=== PATIENT | male | born 1945 | race Caucasian/White ===

== ENCOUNTER → 2017-09-11 14:01 | Outpatient (CLI) | payer MEDICARE, OTHER, SELFPAY | PROVIDERS: Family Provider Family Medicine; PCP Family Medicine; Visit Provider Family Medicine | DX: N30.00 Acute cystitis without hematuria (principal); R32 Unspecified urinary incontinence; Z85.46 Personal history of malignant neoplasm of prostate | CPT/HCPCS: 87086; 87088; 87186 ==

== ENCOUNTER → 2017-12-24 11:08 | Outpatient (CLI) | payer MEDICARE, OTHER, SELFPAY ==
[2017-12-24 15:48] LABS: Anion Gap 8 (5-15); BUN 18 mg/dL (7-18); BUN/Creat Ratio 19.5 RATIO (10-20); Calcium,Total 8.6 mg/dL (8.5-10.1); Chloride 108 mmol/L (98-107); Creatinine, Serum 0.92 mg/dL (0.70-1.30); EST Glomerular Filtration Rate 86 mL/min (>60); Est Glom Filt Rate - Afr Amer 104 mL/min (>60); Glucose 101 mg/dL (74-106); PSA,Total- Diagnostic < 0.01 ng/mL (0.0-4.0); Sodium Level 143 mmol/L (136-145)
== END ==
PROVIDERS: Family Provider Family Medicine; PCP Family Medicine; Visit Provider Family Medicine
DX: I10 Essential (primary) hypertension (principal); I47.1 Supraventricular tachycardia; R30.0 Dysuria; Z85.46 Personal history of malignant neoplasm of prostate
CPT/HCPCS: 36415; 80048; 84153; 87086; 87088; 87186

== ENCOUNTER → 2018-02-11 10:25 | Outpatient (CLI) | payer MEDICARE, OTHER, SELFPAY ==
[2017-03-09 20:05] VITALS: BMI 25.7
--- NOTE | 2018-02-11 10:28 | RAD_ITS ---
STUDY: X-RAY - RIGHT KNEE REASON FOR EXAM: Chronic pain. TECHNIQUE: 4 view(s) of the knee. COMPARISON: None. FINDINGS: Normal visualized distal femur. Normal visualized proximal tibia and fibula. Normal proximal tibiofibular articulation. There is mild joint space narrowing of the medial femorotibial compartment. Normal lateral femorotibial compartment. Normal patellofemoral articulation. There is vascular calcification. RAD/Knee 4 or More Views IMPRESSION: Mild arthrosis of the medial femorotibial compartment. Electronically Signed: Haroon Dior MD at 16:02 EST Tel , Service support ,
== END ==
PROVIDERS: Family Provider Family Medicine; PCP Family Medicine; Referring Provider Orthopaedic Surgery; Visit Provider Orthopaedic Surgery
DX: M25.561 Pain in right knee (principal)
CPT/HCPCS: 73564

== ENCOUNTER → 2018-04-13 10:48 | Outpatient (CLI) | payer MEDICARE, OTHER, SELFPAY ==
[2018-04-13 12:02] LABS: Absolute Lymphocyte Count 0.82 X10^3/ul (0.83-4.51); Basophil# 0.03 X10^3/uL; Basophil% 0.3 % (0-1); Eosinophil# 0.06 X10^3/uL; Eosinophils% 0.6 % (0-5); Hematocrit 46.9 % (40-54); Hemoglobin 15.7 g/dl (13.0-16.5); Lymphocyte # 0.82 X10^3/ul (4.0); Lymphocyte % 8.1 % (19-41); Mean Corp Hgb Conc 33.5 g/gl (32-36); Mean Corpuscular Hgb 30.5 pg (27.0-32.0); Mean Corpuscular Volume 91.2 fL (80-94); Mean Platelet Vol. 9.5 fl (6.2-12.0); Monocyte# 1.17 X10^3/uL; Monocyte% 11.6 % (0-10); Neutrophil # 8.02 X10^3/uL (2.7-7.7); Neutrophil % 79.2 % (47-70); Platelet Count 205 K/mm3 (150-450); RBC Distribution Width CV 13.8 % (11.6-14.6); RBC Distribution Width SD 45.3 fl (35.1-43.9); Red Blood Count 5.14 M/mm3 (4.6-6.2); White Blood Count 10.1 K/mm3 (4.4-11.0)
[2018-04-13 12:03] LABS: POSITIVE COUNT NO; POSITIVE DIFFERENTIAL NO; POSITIVE MORPHOLOGY NO
[2018-04-16 12:09] LABS: Alternaria tenuis <0.10 kU/L (Class 0); Ash, White <0.10 kU/L (Class 0); Aspergillus fumigatus <0.10 kU/L (Class 0); Bermuda Grass <0.10 kU/L (Class 0); Birch <0.10 kU/L (Class 0); Black Walnut <0.10 kU/L (Class 0); Cat Hair / Dander,Stand <0.10 kU/L (Class 0); Cedar, Mountain <0.10 kU/L (Class 0); Cladosporium herbarum <0.10 kU/L (Class 0); Cockroach, American <0.10 kU/L (Class 0); Cottonwood <0.10 kU/L (Class 0); D farinae Mite <0.10 kU/L (Class 0); D pteronyssinus <0.10 kU/L (Class 0); Dog Epithelia <0.10 kU/L (Class 0); Elm, American White <0.10 kU/L (Class 0); Immunoglobulin E 26 IU/mL (0-100); Maple/Box Elder <0.10 kU/L (Class 0); Mulberry, White <0.10 kU/L (Class 0); Oak, White <0.10 kU/L (Class 0); Pecan <0.10 kU/L (Class 0); Penicillium Notatum <0.10 kU/L (Class 0); Pigweed, Rough <0.10 kU/L (Class 0); Ragweed, Short/Common <0.10 kU/L (Class 0); Russian Thistle <0.10 kU/L (Class 0); Sheep Sorrel <0.10 kU/L (Class 0); Sycamore, American <0.10 kU/L (Class 0); Timothy Grass <0.10 kU/L (Class 0)
[2018-04-16 16:26] LABS: Mouse Urine <0.10 kU/L (Class 0)
== END ==
PROVIDERS: Family Provider Family Medicine; PCP Family Medicine; Visit Provider Family Medicine
DX: J01.90 Acute sinusitis, unspecified (principal); J30.9 Allergic rhinitis, unspecified; Z85.46 Personal history of malignant neoplasm of prostate
CPT/HCPCS: 36415; 82785; 85025; 86003; 87070; 87077; 87186; 87205

== ENCOUNTER → 2019-02-09 08:50 | Outpatient (CLI) | payer MEDICARE, OTHER, SELFPAY ==
[2017-03-09 20:05] VITALS: BMI 25.7
[2019-02-09 13:13] LABS: PSA,Total- Diagnostic < 0.01 ng/mL (0.0-4.0)
== END ==
PROVIDERS: Family Provider Family Medicine; PCP Family Medicine; Visit Provider Family Medicine
DX: Z85.46 Personal history of malignant neoplasm of prostate (principal)
CPT/HCPCS: 36415; 84153

== ENCOUNTER 2019-02-28 21:53 | Observation (INO) | payer MEDICARE, OTHER, SELFPAY ==
[2019-02-28] VITALS (8 sets, daily range): BP systolic 145–169; BP diastolic 65–92; PULSE 67–87; RESP 16–20; TEMP 36.4–36.6; O2SAT 95–100; BMI 26.6; BMI 25.8; BMI 25.9
--- NOTE | 2019-02-28 22:15 | EKG12_ITS ---
Test Reason : SOB Blood Pressure : / mmHG Vent. Rate : 073 BPM Atrial Rate : 073 BPM P-R Int : 176 ms QRS Dur : 094 ms QT Int : 414 ms P-R-T Axes : 026 035 034 degrees QTc Int : 456 ms Sinus rhythm with Premature supraventricular complexes and with frequent Premature ventricular comple xes Otherwise normal ECG Confirmed by RIGO PACE, CELINA ([id number]), news assignment editor ESTRELLA GEE ([id number] on 03/03/2019 9:32:05 AM Referred By: BUBBA Confirmed By:CELINA SIERRA MD
--- NOTE | 2019-02-28 22:20 | RAD_ITS ---
STUDY: X-RAY CHEST REASON FOR EXAM: Male, 73 years old. shortness of breath, chest tightness TECHNIQUE: Single AP portable view of the chest. COMPARISON: July 10, 2016 FINDINGS: Possible mild interstitial edema of the bilateral lower lobes versus some respiratory motion artifact. No consolidation or pleural effusion is present. There is no demonstrated pleural abnormality. Normal size heart. The remaining structures are stable. RAD/Chest 1 View (Portable) IMPRESSION: 1. Possible mild interstitial edema of the bilateral lower lobes versus some respiratory motion artifact. No consolidation or pleural effusion is present Electronically Signed: Anil Wilson MD at 22:41 EST , Service support ,
[2019-02-28 22:25] LABS: Absolute Lymphocyte Count 2.72 X10^3/uL (0.83-4.51); Absolute Neutrophil Count 4.4 X10^3/uL (2.0-7.7); Basophil# 0.07 X10^3/uL; Basophil% 0.8 % (0-1); Eosinophil# 0.23 X10^3/uL; Eosinophils% 2.7 % (0-5); Hemoglobin 14.8 g/dL (13.0-16.5); Lymphocyte # 2.72 X10^3/ul (4.0); Lymphocyte % 32.2 % (19-41); Mean Corp Hgb Conc 34.4 g/dL (32-36); Mean Corpuscular Hgb 30.9 pg (27.0-32.0); Mean Corpuscular Volume 89.8 fL (80-94); Mean Platelet Vol. 9.8 fl (6.2-12.0); Monocyte# 0.98 X10^3/uL; Monocyte% 11.6 % (0-10); NRBC Flagged by Analyzer 0 % (0-5); Neutrophil # 4.43 X10^3/uL (2.7-7.7); Neutrophil % 52.5 % (47-70); Platelet Count 241 K/mm3 (150-450); RBC Distribution Width CV 13.2 % (11.6-14.6); RBC Distribution Width SD 43.9 fl (35.1-43.9); Red Blood Count 4.79 M/mm3 (4.6-6.2); White Blood Count 8.5 K/mm3 (4.4-11.0)
[2019-02-28 22:37] LABS: D-Dimer Quantitative (DVT/PE) 0.55 FEU/ug/m (0.27-0.49)
--- NOTE | 2019-02-28 22:38 | ED.RN ---
DOROTEO FROM LAB CALLED WITH D-DIMER 0.55.
[2019-02-28 22:42] LABS: Anion Gap 7 (5-15); BUN 22 mg/dL (7-18); Calcium,Total 8.8 mg/dL (8.5-10.1); Chloride 109 mmol/L (98-107); Creatinine, Serum 1.05 mg/dL (0.70-1.30); EST Glomerular Filtration Rate 74 mL/min (>60); Est Glom Filt Rate - Afr Amer 89 mL/min (>60); Estimated Creatinine Clearance 72.85 ml/min; Glucose 135 mg/dL (74-106); Potassium 3.8 mmol/L (3.5-5.1); Sodium Level 141 mmol/L (136-145)
[2019-02-28] MEDS: Aspirin 81 MG TAB.CHEW 324 MG PO (22:48)
[2019-02-28] MEDS: 0.9% Normal Saline 1,000 ML 150 ML IV (22:48)
[2019-02-28] MEDS: Nitroglycerin SL (ED/IMG/CATH) 0.4 MG TABLET SUBLINGUAL ×3 (22:50→23:15)
--- NOTE | 2019-02-28 22:55 | ED.VISSUMM ---
- ER Visit Summary Date of Service: 02/28/19 Chief Complaint: [Shortness of breath] History of Present Illness: The patient is a 73 M [presents the emergency department complaint shortness of breath and chest discomfort that started suddenly several hours ago. Patient is never had discomfort like this before. He describes some discomfort across the shoulder blades 2. Denies any nausea or vomiting. He denies diaphoresis. Patient did have travel to [place] 2 or 3 weeks ago and was about a 15-hour drive. Patient has history of hypertension. He has no heart disease history. He has had some cold symptoms for the last week.] Physical Examination: [HEENT-PERRLA, EOMI. Cranial nerves II through XII grossly intact. TMs clear. Mucous membranes moist. No adenopathy. Cardiovascular-regular rate and rhythm without murmur or ectopy Lungs-clear to auscultation, chest wall stable without crepitus or subcu emphysema Abdomen-normoactive bowel sounds, soft, nontender, no rebound or rigidity, no peritoneal signs. Extremities-intact ?4, normal range of motion, normal pulses, atraumatic] Test Results: [EKG obtained arrival shows sinus rhythm with a ventricular rate of 73 bpm with occasional PVCs. No acute ST segment changes noted. CBC with differential was normal. Chemistries unremarkable. Troponin was less than 0.015. D-dimer was 0.55. The d-dimer is normal when corrected for age.] Emergency Department Course and Treatment: [Patient received aspirin on arrival emergency department. Patient will receive sublingual nitroglycerin.] Treatment Plan: [Admit] Disposition: [Admit] Impression: [Chest pain-rule out acute coronary syndrome] This note was generated with [employer] dictation software. It may contain incorrect words, spelling, and punctuation that were not noted in review of the chart prior to signing ED Disposition - Plan for ED Patient: Referrals: Evert Hsu DO [Primary Care Provider] -
--- NOTE | 2019-02-28 23:17 | PCM.HP.STD ---
Problem List (1) Chest pain Status: Acute (2) Hypertension Status: Chronic (3) Chronic back pain Status: Chronic (4) Hiatal hernia Status: Chronic History of Present Illness Date of Admission: 02/28/19 Chief Complaint: Chest pain, shortness of breath. The patient is a 73 year old M with past medical history as mentioned above presented to the emergency room because of shortness of breath and chest pain. Patient stated that around 3 hours ago after he had showered and went to sit on his couch, started feeling chest pain described as chest tightness across anterior chest, associated with shortness of breath, was not real pain but it was chest tightness, not radiating but involving the back of his chest as well and without aggravating or relieving factors. He denied dizziness, lightheadedness or diaphoresis. Denied nausea or vomiting. He received aspirin and sublingual nitro in the ED and he mentioned his tightness did not improve. In the emergency department, his blood pressure was slightly elevated, other vital signs were stable. Routine blood work was unremarkable. EKG revealed normal sinus rhythm with frequent PVCs, no acute segment changes. Troponin was negative. Chest x-ray revealed minimal bilateral basilar haziness which could be artifact or mild pulmonary vascular congestion. There was no infiltrate or consolidation. D-dimer was 0.55. He is being admitted for atypical chest pain for evaluation. Past Medical History Past Medical History (Chronic Problems): Chronic Problems Hypertension (Chronic) Chronic back pain (Chronic) Hiatal hernia (Chronic) Allergies No Known Allergies Allergy (Verified 02/11/18 10:16) Home Medications: Ambulatory Orders Medication Instructions Recorded Omeprazole [Prilosec] 20 mg PO DAILY 12/19/15 Diltiazem CD [Cardizem CD] 180 mg PO DAILY 04/08/16 Multivitamin [Daily Multiple 1 each PO DAILY 06/16/16 Vitamin] Aspirin [Aspirin EC] 81 mg PO DAILY 08/29/16 Surgical History: Surgical History (Last Updated 02/11/18 @ 10:17 by Sidra Kat) H/O left knee surgery Z98.890 Surgical History: total hip arthroplasty, TURP, - - Back surgeries ?2, rotator cuff surgery of both shoulders. Psychiatric History: No pertinent psych hx Lives: Spouse/ Significant Other Smoking Status: Never smoker Alcohol: None Drugs: None - *Family History Maternal History Items: Heart Disease, Stroke Paternal History Items: Heart Disease, Stroke Review of Systems Constitutional: Denies: Anorexia, Chills, Fever, Malaise Eyes: Denies: Blurred vision, Double vision, Drainage, Redness HEENT: Denies: Difficulty Hearing, Ear Pain, Eye Pain, Nasal Congestion, Sore Throat Cardiovascular: Reports: Chest Tightness. Denies: Edema, Heaviness, Light Headedness, Orthopnea, Palpitations, Paroxysmal Noc. Dyspnea, Syncope Respiratory: Reports: Shortness of Breath. Denies: Cough, Hemoptysis, Pleuritic Pain, Sputum production, Wheezing Gastrointestinal: Denies: Abdominal Pain, Constipation, Diarrhea, Nausea, Vomiting Genitourinary: Denies: Dysuria, Frequency, Hematuria Musculoskeletal: Denies: Arm Pain, Back Pain, Foot Pain Skin: Denies: Dryness, Rash Neurological: Denies: Balance problems, Blurred vision, Double vision, Change in Speech, Slurred speech, Confusion, Headaches, Incoordination Psychiatric: Denies: Anxiety, Depression Endocrine: Denies: Change in Body Habitus, Polydipsia, Polyuria VTE Information - Inpt Only VTE Present on Admission: No VTE Mechan Device Prophylaxis: None VTE Pharm Prophylaxis ordered?: Yes Patient Problems: Active and Suspected Problems Chest pain (Acute) - Physical Exam Vitals/I&O's: Vital Signs Temp Pulse Resp BP Pulse Ox 97.8 F 80 18 145/77 H 95 02/28/19 21:53 02/28/19 23:15 02/28/19 22:58 02/28/19 23:15 02/28/19 22:58 Oxygen Delivery Method Room Air Weight: 207 lb Body Mass Index (BMI) 26.6 Finger Stick Blood Glucose 162 General: Alert, Oriented x3, Cooperative, No apparent distress HEENT: Atraumatic, PERRLA, EOMI, Normocephalic Oral: Moist Mucosa, No Gingival or Mucosal Lesions/ Ulcerations Neck: Supple, No JVD, Negative Carotid Bruits, Trachea Midline, Thyroid Normal Size and Texture Lungs: Clear to auscultation, Normal air movement, No rhonchi, No wheeze, No rales, Diminished Cardiovascular: Regular rate, Regular Rhythm, Normal S1, Normal S2, PMI Normal, - - Ectopics. Abdomen: Bowel Sounds Present, Soft, Non Tender, Non-Distended, No Hepato-splenomegaly Extremities: No clubbing, No cyanosis, No edema Skin: No rashes, No breakdown Lymphatic: No Cervical, Supraclavicular, or Inguinal Adenopathy Neurological: Cranial nerves II-XII grossly intact, Motor Exam 5/5 strength throughout Psych/Mental Status: Normal Affect, Appropriate, Alert and oriented to time, place, person, mood and affect Laboratory Results 02/28/19 22:05: WBC 8.5, RBC 4.79, Hgb 14.8, Hct 43.0, MCV 89.8, MCH 30.9, MCHC 34.4, RDW Std Deviation 43.9, RDW Coeff of Violeta 13.2, Plt Count 241, MPV 9.8, Immature Gran % (Auto) 0.200, Neut % (Auto) 52.5, Lymph % (Auto) 32.2, [place] % (Auto) 11.6 H, Eos % (Auto) 2.7, Baso % (Auto) 0.8, Absolute Neuts (auto) 4.4, Absolute Lymphs (auto) 2.72, Nucleated RBC % 0 02/28/19 22:05: D-Dimer Quant (PE/DVT) 0.55 H* 02/28/19 22:05: Sodium 141, Potassium 3.8, Chloride 109 H, Carbon Dioxide 25.0, Anion Gap 7, BUN 22 H, Creatinine 1.05, Estim Creat Clear Calc 72.85, Est GFR (MDRD) Af Amer 89, Est GFR (MDRD) Non-Af 74, BUN/Creatinine Ratio 21.0 H, Glucose 135 H, Calcium 8.8, Troponin I < 0.015 Clinical Impression(s) from Imaging Studies Chest X-Ray 02/28/19 22:20 IMPRESSION: 1. Possible mild interstitial edema of the bilateral lower lobes versus some respiratory motion artifact. No consolidation or pleural effusion is present Electronically Signed: Anil Wilson MD at 22:41 EST , Service support , Current Medications Sodium Chloride () 1,000 mls @ 150 mls/hr IV .[id number] [facility] Last Admin: 02/28/19 22:48 Dose: 150 mls/hr Documented by: Assessment/Plan All Active Problems Chest pain (Acute) This is a 73 years old male patient presented to the emergency room because of chest tightness and shortness of breath and he is being admitted for evaluation. #1 atypical chest pain: Risk factors are age and history of hypertension. Patient never smoked, no family history of premature CAD. EKG revealed normal sinus rhythm with frequent PVCs, no acute acute changes. Chest x-ray reviewed as above. D-dimer was 0.55 but adjusted d-dimer for age was normal. Patient is not tachypneic, tachypneic or tachycardic, no hypoxia. No clinical evidence of DVT. Plan: Admit to PCU observation, cardiac monitoring, serial cardiac enzymes, repeat EKG tomorrow morning, check serum magnesium and TSH, fasting lipid profile, continue aspirin, Tylenol PRN, Zofran PRN, nuclear stress test tomorrow morning if cardiac enzymes are negative. #2 hypertension: Blood pressure was slightly elevated in the ED and his mentioned that his blood pressure has been up and down. Patient on Cardizem for at least 3 years which is a calcium channel amilcar. EKG reviewed as above, frequent PVCs. Plan: will start metoprolol 25 mg p.o. twice daily starting tomorrow after stress test. #3 hiatal hernia: Continue PPI. #4 DVT prophylaxis: Subcu Lovenox. This note was generated with [employer] dictation software. It may contain incorrect words, spelling, and punctuation that were not noted in checking the note before signing. Code Visit OBSV E&M: 14804 Initial observation care L3
[2019-03-01] VITALS (7 sets, daily range): BP systolic 126–165; BP diastolic 69–87; PULSE 52–95; RESP 20; TEMP 36.5–36.7; O2SAT 93–96
[2019-03-01] MEDS: 0.9% Normal Saline 1,000 ML 75 ML IV (00:02)
--- NOTE | 2019-03-01 00:04 | EKG12_ITS ---
Test Reason : CP ADMIT Blood Pressure : / mmHG Vent. Rate : 059 BPM Atrial Rate : 059 BPM P-R Int : 232 ms QRS Dur : 096 ms QT Int : 458 ms P-R-T Axes : 052 054 039 degrees QTc Int : 453 ms Sinus bradycardia with 1st degree A-V block with occasional Premature ventricular complexes Otherwise normal ECG No previous ECGs available Confirmed by RUTH ANN PACE, LUISA ([id number]), legal editor ESTRELLA GEE ([id number]) on 03/04/2019 10:55:42 AM Referred By: RACHEL Confirmed By:CARLITOS VALLECILLO MD
[2019-03-01 00:21] LABS: Magnesium 2.1 mg/dL (1.6-2.6); Thyroid Stim Hormone (TSH) 8.01 uIU/mL (0.358-3.74)
[2019-03-01 05:26] LABS: Cholesterol 119 mg/dL (200); High Density Lipoprotein 38 mg/dL; Triglycerides 57 mg/dL; Very Low Density Lipoprotein 11 mg/dL (5-40)
[2019-03-01] MEDS: Aspirin E.C. 81 MG Tablet PO (06:16)
[2019-03-01] MEDS: Pantoprazole Sodium 20 MG Tablet PO (11:44)
[2019-03-01] MEDS: Metoprolol Tartrate 25 MG Tablet PO (11:44)
--- NOTE | 2019-03-01 12:40 | STRESSREP ---
Stress Test Report 73-year-old man with a history of chest tightness. Medications aspirin metoprolol. Stress protocol: Resting EKG demonstrates sinus bradycardia with a rate of 55 bpm normal intervals are noted resting blood pressures 152/72 mmHg. The patient exercised according to regular Tommie protocol for total duration of 6 minutes the maximum heart rate attained was 141 bpm which was 95% of maximum predicted heart rate the maximum workload was 7 metabolic equivalents. At rest there were no ST or T wave changes noted suggest ischemia at peak exercise upsloping ST changes only were noted with no meet the criteria for ischemia. The resting blood pressure was 152/72 mmHg and a peak blood pressure of 170/70 mmHg. No clinical angina was noted. Myocardial perfusion protocol. 12.0 mCi of technetium 99m sestamibi was injected at rest. The patient exercised according to regular Tommie protocol for a total duration of 6 minutes and at peak exercise 35.0 mCi of technetium 99m sestamibi was injected stress images were obtained stress and rest images were reconstructed and compared in the short axis vertical long horizontal long axis. Gated images were also obtained Perfusion SPECT analysis: Review of the stress images demonstrate normal perfusion noted in all areas of the myocardium. The resting images similar demonstrate normal perfusion noted in all areas of the myocardium. No obvious reversibility is no suggest ischemia no previous infarct is noted. Gated SPECT analysis: The gated ejection fraction is 63%. Conclusion: Normal exercise myocardial perfusion stress test with no evidence of ischemia at a moderate workload Good functional capacity. No ischemia noted.
--- NOTE | 2019-03-01 13:01 | DCINST_ITS ---
- Discharge Diagnoses Current Active Problems: Current Active and Chronic Problems Chest pain (Acute) Hypertension (Chronic) You will use the following diet at home:: Cardiac Your food should be the consistency of: Regular Your liquids should be the consistency of: Regular/Thin Discharge Activity: Return to Normal Activity Call your doctor if you observe: Fever of 101 or Higher, Shortness of breath, Dizziness, Fainting spells, Swelling in the ankles, Chest pain, Increased palpitations (irregular heartbeat) Allergies/Adverse Reactions: Allergies No Known Allergies Allergy (Verified 02/11/18 10:16) Medications to take at Discharge Omeprazole [Prilosec] 20 mg PO DAILY 12/19/15 Diltiazem CD [Cardizem CD] 180 mg PO DAILY 04/08/16 Multivitamin [Daily Multiple Vitamin] 1 each PO DAILY 06/16/16 Aspirin [Aspirin EC] 81 mg PO DAILY 08/29/16 Primary Care Physician: Evert Hsu DO [Primary Care Provider] - Please follow up with your Primary Care Physician in: 3-5 days Test Results: Test results from this visit will be discussed in further detail at your follow- up appointment, if applicable.
--- NOTE | 2019-03-01 13:04 | DS.PCM_ITS ---
Discharge Date and Diagnosis - Problem List Patient Problems: Active and Suspected Problems Chest pain (Acute) Date of Admission: 02/28/19 Date of Discharge: 03/01/19 - Primary Discharge Diagnosis Active and Suspected Problems Chest pain (Acute) - Secondary Discharge Diagnosis Chronic Problems Hypertension (Chronic) Chronic back pain (Chronic) Hiatal hernia (Chronic) Hospital Course and Treatment Imaging Results: CXR: IMPRESSION: 1. Possible mild interstitial edema of the bilateral lower lobes versus some respiratory motion artifact. No consolidation or pleural effusion is present Stress Test: Stress protocol: Resting EKG demonstrates sinus bradycardia with a rate of 55 bpm normal intervals are noted resting blood pressures 152/72 mmHg. The patient exercised according to regular Tommie protocol for total duration of 6 minutes the maximum heart rate attained was 141 bpm which was 95% of maximum predicted heart rate the maximum workload was 7 metabolic equivalents. At rest there were no ST or T wave changes noted suggest ischemia at peak exercise upsloping ST changes only were noted with no meet the criteria for ischemia. The resting blood pressure was 152/72 mmHg and a peak blood pressure of 170/70 mmHg. No clinical angina was noted. Myocardial perfusion protocol. 12.0 mCi of technetium 99m sestamibi was injected at rest. The patient exercised according to regular Tommie protocol for a total duration of 6 minutes and at peak exercise 35.0 mCi of technetium 99m sestamibi was injected stress images were obtained stress and rest images were reconstructed and compared in the short axis vertical long horizontal long axis. Gated images were also obtained Perfusion SPECT analysis: Review of the stress images demonstrate normal perfusion noted in all areas of the myocardium. The resting images similar demonstrate normal perfusion noted in all areas of the myocardium. No obvious reversibility is no suggest ischemia no previous infarct is noted. Gated SPECT analysis: The gated ejection fraction is 63%. Conclusion: Normal exercise myocardial perfusion stress test with no evidence of ischemia at a moderate workload Good functional capacity. No ischemia noted. Operations: None Procedures: Nuclear stress test Summary of Care Provided: Per HPI: The patient is a 73 year old M with past medical history as mentioned above presented to the emergency room because of shortness of breath and chest pain. Patient stated that around 3 hours ago after he had showered and went to sit on his couch, started feeling chest pain described as chest tightness across anterior chest, associated with shortness of breath, was not real pain but it was chest tightness, not radiating but involving the back of his chest as well and without aggravating or relieving factors. He denied dizziness, lightheadedness or diaphoresis. Denied nausea or vomiting. He received aspirin and sublingual nitro in the ED and he mentioned his tightness did not improve. In the emergency department, his blood pressure was slightly elevated, other vital signs were stable. Routine blood work was unremarkable. EKG revealed normal sinus rhythm with frequent PVCs, no acute segment changes. Troponin was negative. Chest x-ray revealed minimal bilateral basilar haziness which could be artifact or mild pulmonary vascular congestion. There was no infiltrate or consolidation. D-dimer was 0.55. He is being admitted for atypical chest pain for evaluation. Hospital Course: 1. Atypical chest pain/[id number]-[id number]-old male presenting with atypical chest pain with a risk factor of age and his history of high blood pressure. He did have an elevated d-dimer on admission however it was not elevated relative to age. He had a stress test today after 3 troponins were negative, which was also negative. At the time of discharge his chest pain had completely resolved and he was asymptomatic he was continued on his Cardizem as well as his aspirin. It was discussed with him that he will need to follow-up with his primary care doctor in 3 to 5 days, he also had an elevated TSH and a free T3 and T4 are currently pending however this can be followed up as an outpatient as well. His blood pressure has been stable, but a little bit high in the 140s and 150s, he will need to follow-up once again with his primary care doctor for this issue as well and if he continues to remain elevated in the outpatient setting then a second medication could be added. I discussed the plan with him and he expressed understanding of the risks and benefits of discharge. 2. His other medical diagnoses were evaluated and his home medications were continued where appropriate. Patient Problems: Active and Suspected Problems Chest pain (Acute) - Physical Exam Vitals/I&O's: Vital Signs Temp Pulse Resp BP Pulse Ox 98.0 F 62 20 H 165/87 H 96 03/01/19 11:40 03/01/19 11:44 03/01/19 11:40 03/01/19 11:40 03/01/19 11:40 Oxygen Delivery Method Room Air Weight: 201 lb 8.04 oz Body Mass Index (BMI) 25.8 Finger Stick Blood Glucose 162 Intake and Output for Last 24 Hours 02/27/19 02/28/19 03/01/19 23:59 23:59 23:59 Intake Total 0 / 0 927.5 / 927.5 Balance 0 / 0 927.5 / 927.5 General: Alert, Oriented x3, Cooperative, No apparent distress HEENT: Atraumatic, PERRLA, EOMI, Normocephalic Oral: Moist Mucosa Neck: Supple, No JVD Lungs: Clear to auscultation, Normal air movement, No rhonchi, No wheeze, No rales, Diminished Cardiovascular: Regular rate, Regular Rhythm, Normal S1, Normal S2, No murmurs Abdomen: Soft, Non Tender, Non-Distended, No Hepato-splenomegaly Extremities: No edema, Capillary Refill Less than 3 Seconds Skin: No rashes, No breakdown Neurological: Neuro grossly intact, Sensory exam intact to light touch and pain Psych/Mental Status: Normal Affect, Appropriate Laboratory Results 02/28/19 22:05: WBC 8.5, RBC 4.79, Hgb 14.8, Hct 43.0, MCV 89.8, MCH 30.9, MCHC 34.4, RDW Std Deviation 43.9, RDW Coeff of Violeta 13.2, Plt Count 241, MPV 9.8, Immature Gran % (Auto) 0.200, Neut % (Auto) 52.5, Lymph % (Auto) 32.2, [place] % (Auto) 11.6 H, Eos % (Auto) 2.7, Baso % (Auto) 0.8, Absolute Neuts (auto) 4.4, Absolute Lymphs (auto) 2.72, Nucleated RBC % 0 02/28/19 22:05: D-Dimer Quant (PE/DVT) 0.55 H* 02/28/19 22:05: Sodium 141, Potassium 3.8, Chloride 109 H, Carbon Dioxide 25.0, Anion Gap 7, BUN 22 H, Creatinine 1.05, Estim Creat Clear Calc 72.85, Est GFR (MDRD) Af Amer 89, Est GFR (MDRD) Non-Af 74, BUN/Creatinine Ratio 21.0 H, Glucose 135 H, Calcium 8.8, Troponin I < 0.015 02/28/19 22:05: Magnesium 2.1, TSH 8.01 H 03/01/19 01:15: Troponin I < 0.015 03/01/19 04:46: Troponin I 0.018, Triglycerides 57, Cholesterol 119, LDL Cholesterol 70, VLDL Cholesterol 11, HDL Cholesterol 38 L Current Medications Acetaminophen (Tylenol) 650 mg PO Q6H PRN PRN PRN Reason: Pain Score 1-3/Temp > 100.7 F Aspirin (Ecotrin) 81 mg PO DAILY [facility] Last Admin: 03/01/19 06:16 Dose: 81 mg Documented by: Enoxaparin Sodium (Lovenox) 40 mg SC DAILY [facility] Hydralazine HCl (Apresoline Iv) 10 mg IV Q8H PRN PRN PRN Reason: for SBP>160 Sodium Chloride () 250 mls @ 15 mls/hr IV .[id number] PRN PRN Reason: Saline Flush Sodium Chloride () 250 mls @ 15 mls/hr IV .[id number] PRN PRN Reason: Additional IVPB Infusion Metoprolol Tartrate (Lopressor (Beta Eben)) 25 mg PO BID [facility] Last Admin: 03/01/19 11:44 Dose: 25 mg Documented by: Nitroglycerin (Nitrostat) 0.4 mg SUBLINGUAL Q5M PRN PRN Reason: CHEST PAIN Nutritional Formula (Lactose Free) (Ensure Enlive) 120 ml PO 4X/DAY [facility] Last Admin: 03/01/19 11:43 Dose: 120 ml Documented by: Ondansetron HCl (Zofran) 4 mg IV Q8H PRN PRN PRN Reason: NAUSEA/VOMITING Pantoprazole Sodium (Protonix) 20 mg PO DAILY [facility] Last Admin: 03/01/19 11:44 Dose: 20 mg Documented by: Sodium Chloride () 10 - 40 ml IV UD PRN PRN Reason: SALINE FLUSH Discharge Activity: Return to Normal Activity Call your doctor if you observe: Fever of 101 or Higher, Shortness of breath, Dizziness, Fainting spells, Swelling in the ankles, Chest pain, Increased palpitations (irregular heartbeat) Home Medications: Medications to take at Discharge Omeprazole [Prilosec] 20 mg PO DAILY 12/19/15 Diltiazem CD [Cardizem CD] 180 mg PO DAILY 04/08/16 Multivitamin [Daily Multiple Vitamin] 1 each PO DAILY 06/16/16 Aspirin [Aspirin EC] 81 mg PO DAILY 08/29/16 Primary Care Physician: Evert Hsu DO [Primary Care Provider] - Please follow up with your Primary Care Physician in: 3-5 days Disposition: Home Minutes spent on discharge:: 35 Patient Condition:: Stable Medical Necessity - Tobacco Use Smoking Status: Never smoker Meaningful Use Info Meaningful Use Diagnoses (Choose all that apply): None applicable Code Visit OBSV E&M: 03129 Observation care discharge
[2019-03-01 13:50] LABS: Free T3 2.8 pg/mL (2.18-3.98); T4 Free Direct 0.84 ng/dL (0.76-1.46)
== END 2019-03-01 13:02 | disposition home or self-care (01) ==
LOC: ED 22:26 → PCU 23:36
PROVIDERS: Admitting Provider Hospitalist; Emergency Provider Emergency Medicine; Family Provider Family Medicine; PCP Family Medicine; Visit Provider Family Medicine
DX: R07.89 Other chest pain (principal); I10 Essential (primary) hypertension; K44.9 Diaphragmatic hernia without obstruction or gangrene; Z79.899 Other long term (current) drug therapy; Z79.82 Long term (current) use of aspirin; R06.02 Shortness of breath; I49.3 Ventricular premature depolarization; Z23 Encounter for immunization
CPT/HCPCS: 36415; 71045; 78452; 80048; 80061; 83735; 84439; 84443; 84481; 84484; 85025; 85379; 93005; 93017; 96360; 96361; 97802; 99218; 99285; A9500; G0008; J7030; 90686; A4216; G0378; J2785

== ENCOUNTER → 2019-12-12 | Outpatient (CLI) | payer MEDICARE, OTHER, SELFPAY ==
[2019-02-28 23:30] VITALS: BMI 25.8
[2019-12-12 15:41] LABS: PSA,Total- Diagnostic < 0.01 ng/mL (0.0-4.0)
== END | disposition home or self-care (01) ==
LOC: BFHLAB 11:16
PROVIDERS: PCP Family Medicine; Visit Provider Family Medicine
DX: Z85.46 Personal history of malignant neoplasm of prostate (principal)
CPT/HCPCS: 36415; 84153

== ENCOUNTER → 2020-08-13 14:27 | Outpatient (CLI) | payer MEDICARE, OTHER, SELFPAY ==
[2019-02-28 23:30] VITALS: BMI 25.8
[2020-08-13 17:47] LABS: Absolute Lymphocyte Count 1.57 X10^3/uL (0.83-4.51); Absolute Neutrophil Count 5.4 X10^3/uL (2.0-7.7); Basophil# 0.05 X10^3/uL; Basophil% 0.6 % (0-1); Eosinophil# 0.13 X10^3/uL; Eosinophils% 1.7 % (0-5); Hematocrit 43.8 % (40-54); Hemoglobin 15.5 g/dL (13.0-16.5); Lymphocyte # 1.57 X10^3/ul (0.83-4.51); Lymphocyte % 19.9 % (19-41); Mean Corp Hgb Conc 35.4 g/dL (32-36); Mean Corpuscular Hgb 32.2 pg (27.0-32.0); Mean Corpuscular Volume 90.9 fL (80-94); Mean Platelet Vol. 9.8 fl (6.2-12.0); Monocyte# 0.74 X10^3/uL; Monocyte% 9.4 % (0-10); NRBC Flagged by Analyzer 0 % (0-5); Neutrophil # 5.36 X10^3/uL (2.7-7.7); Neutrophil % 68.1 % (47-70); Platelet Count 274 K/mm3 (150-450); RBC Distribution Width CV 13.1 % (11.6-14.6); RBC Distribution Width SD 43.8 fl (35.1-43.9); Red Blood Count 4.82 M/mm3 (4.6-6.2); White Blood Count 7.9 K/mm3 (4.4-11.0)
[2020-08-13 18:14] LABS: ALB/GLOB Ratio 1.2 RATIO (0.9-2.4); AST(SGOT) 24 U/L (15-37); Alanine Aminotransfer ALT/SGPT 35 U/L (16-61); Albumin, Serum 3.8 g/dL (3.2-5.0); Alkaline Phosphatase 101 U/L (45-117); Anion Gap 8 (5-15); BUN 22 mg/dL (7-18); BUN/Creat Ratio 17.7 RATIO (10-20); Calcium,Total 8.6 mg/dL (8.5-10.1); Chloride 106 mmol/L (98-107); Creatinine, Serum 1.24 mg/dL (0.70-1.30); EST Glomerular Filtration Rate 60 mL/min (>60); Est Glom Filt Rate - Afr Amer 73 mL/min (>60); Globulin 3.2 g/dL (2.2-4.2); Glucose 120 mg/dL (74-106); PSA,Total - Annual Screen < 0.01 ng/mL (0.00-4.00); Potassium 4.1 mmol/L (3.5-5.1); Sodium Level 140 mmol/L (136-145); T4 Free Direct 0.73 ng/dL (0.76-1.46); Thyroid Stim Hormone (TSH) 2.86 uIU/mL (0.358-3.74)
== END ==
PROVIDERS: PCP Family Medicine; Referring Provider Family Medicine; Visit Provider Family Medicine
DX: I10 Essential (primary) hypertension (principal); R79.89 Other specified abnormal findings of blood chemistry; R53.83 Other fatigue; R73.09 Other abnormal glucose; Z12.5 Encounter for screening for malignant neoplasm of prostate
CPT/HCPCS: 36415; 80053; 83036; 84153; 84439; 84443; 85025; G0103

== ENCOUNTER 2021-09-01 16:57 | Emergency (ER) | payer MEDICARE, OTHER, SELFPAY ==
[2021-09-01 16:58] VITALS: BP 132/83; PULSE 99; RESP 14; TEMP 37.4; O2SAT 96; BMI 25.7
--- NOTE | 2021-09-01 17:20 | EX.ED.DYSGE1 ---
HPI History of Present Illness Chief Complaint: Nausea/Vomiting/Diarrhea Informant: patient and spouse/S.O. Narrative Narrative: Patient presents for diarrhea for the past 4 days multiple episodes nonbloody. Using ecib-[id number]-klnfhrp medications. 5 episodes a day. Nausea without vomiting. Denies recent antibiotics. Denies fevers. Feels abdominal being bloated. He is tolerating oral intake. History of hypertension hiatal hernia and takes a baby aspirin. Denies any urinary symptoms. PFSH PFSH Medical History Hypertension Home Medications omeprazole 20 mg capsule,delayed release 20 mg PO DAILY reflux 12/19/15 [History Last Taken 02/28/19] diltiazem HCl 120 mg capsule,extended release 24 hr 180 mg PO DAILY heart rate 04/08/16 [History Last Taken 02/28/19] multivitamin (Daily Multiple) 1 ea PO DAILY vitamin 06/16/16 [History Last Taken 02/28/19] aspirin 81 mg tablet,delayed release 81 mg PO DAILY heart health 08/29/16 [History Last Taken 02/28/19] ondansetron 4 mg disintegrating tablet 4 mg PO Q6H PRN nausea and vomiting #10 tabs 09/01/21 [Rx Last Taken Unknown] Allergy/AdvReac Type Severity Reaction Status Date / Time No Known Allergies Allergy Verified 09/01/21 16:59 Surgical History H/O left knee surgery Social History Smoking Status: Never smoker ROS ROS ED Constitutional Constitutional ED: Denies chills, fever(s) or sweats Eyes Eyes: Denies change in vision ENT ENT ED: Denies dysphagia or sore throat Cardiovascular Cardiovascular: Denies chest pain, leg edema, palpitations or racing heartbeat Respiratory/Chest Respiratory/Chest: Denies cough, dyspnea or dyspnea on exertion Gastrointestinal Gastrointestinal: Reports diarrhea and nausea; Denies abdominal pain or vomiting Genitourinary Genitourinary ED: Denies dysuria, hematuria or urinary frequency Musculoskeletal Musculoskeletal: Denies back pain, extremity pain or neck pain Integumentary Denies rash or wounds Neurologic Neurologic: Denies headache(s), paresthesias or weakness EXAM Physical Exam Const Vital Signs: 09/01/21 16:58 09/01/21 19:20 09/01/21 19:42 Temperature 99.3 F H Temperature Source Temporal Pulse Rate 99 76 74 Respiratory Rate 14 18 Blood Pressure 132/83 H 134/74 H Blood Pressure Mean 99 Pulse Ox 96 97 Oxygen Delivery Method Room Air Room Air Positive well nourished and well developed General Appearance ED: well developed and NAD HEENT HEENT Narrative: Mild dry mucosal membranes. normocephalic and atraumatic Eyes PERRL, EOMs intact bilaterally and conjunctivae normal General Eye ED: Yes normal appearance of both eyes Neck no lymphadenopathy and supple General: Negative for tenderness Chest Wall Chest: Negative for tenderness Resp normal respiratory effort and normal air movement Effort and Inspection: symmetric chest movement; Negative for respiratory distress Cardio regular rate, regular rhythm and no murmurs Peripheral Pulses: pulses 2+ throughout GI normal to inspection, nondistended, normoactive bowel sounds, non-tender and non-distended GI Narrative: Negative Morillo's or McBurney's tenderness. Palpation: Negative for guarding or rebound tenderness present Back/Spine no CVA tenderness and no thoracic nor lumbar tenderness Extremity normal to inspection General Extremety ED: Negative for edema or tenderness General Extremity: Negative for edema Neuro oriented x3 and no sensory deficits noted Sensorium / Orientation: awake and alert Skin no rashes or lesions noted and no wounds MDM MDM MDM Narrative Medical decision making narrative: Patient nontoxic, mild dry mucosal membranes. Given IV fluids antiemetics. I did check labs stable electrolytes creatinine 1.36 stable from previous. Mild dehydration on exam. He is tolerating oral fluids. Order for stool samples however unobtainable in the ED. There is been no diarrhea in the ED. No C. difficile risk factors. Discussed continuing oral fluids for hydration prescription for Zofran sent to his pharmacy. Return precaution discussed. All questions were answered. Lab Data Attestation: I reviewed the patient's lab results. Labs: Laboratory Results - last 24 hr 09/01/21 09/01/21 17:30 17:30 WBC 7.6 RBC 4.86 Hgb 15.0 Hct 43.8 MCV 90.1 MCH 30.9 MCHC 34.2 RDW Std Deviation 44.0 H RDW Coeff of Violeta 13.3 Plt Count 183 MPV 9.6 Sodium 136 Potassium 4.2 Chloride 105 Carbon Dioxide 26.0 Anion Gap 5 BUN 19 H Creatinine 1.36 H Estim Creat Clear Calc 53.73 Est GFR (MDRD) Af Amer 66 Est GFR (MDRD) Non-Af 54 L BUN/Creatinine Ratio 14.0 Glucose 195 H Calcium 8.7 Magnesium 1.7 Discharge Plan Triage Chief Complaint: Nausea/Vomiting/Diarrhea ED Provider: Ruddy Castanon Dx/Rx/DC Orders Clinical Impression: Diarrhea, Dehydration Instructions: ED Dehydration (Adult), ED Diarrhea, Unknown Cause Prescriptions: New ondansetron 4 mg tablet,disintegrating 4 mg PO Q6H PRN (Reason: nausea and vomiting) Qty: 10 0RF No Action omeprazole 20 MG capsule 20 mg PO DAILY Label Comments: REFLUX diltiazem HCl 120 MG capsule 180 mg PO DAILY Label Comments: HEART multivitamin [Daily Multiple] 1 EACH tablet 1 ea PO DAILY Label Comments: SUPPLEMENT aspirin 81 MG tablet,delayed release (DR/EC) 81 mg PO DAILY Primary Care Provider: Evert Hsu Referrals: Evert Hsu DO [Primary Care Provider] - 3-5 Days if not improving Disposition Disposition: Home, Self Care Discharge Date/Time: 09/01/21 19:50
[2021-09-01 17:40] LABS: Hematocrit 43.8 % (40-54); Mean Corp Hgb Conc 34.2 g/dL (32-36); Mean Corpuscular Hgb 30.9 pg (27.0-32.0); Mean Corpuscular Volume 90.1 fL (80-94); Mean Platelet Vol. 9.6 fl (6.2-12.0); Platelet Count 183 K/mm3 (150-450); RBC Distribution Width CV 13.3 % (11.6-14.6); Red Blood Count 4.86 M/mm3 (4.6-6.2); White Blood Count 7.6 K/mm3 (4.4-11.0)
[2021-09-01] MEDS: 0.9% Normal Saline 1,000 ML 1000 ML IV (17:45)
[2021-09-01] MEDS: Ondansetron 4 MG/2 ML Vial IV (17:45)
[2021-09-01 17:59] LABS: Anion Gap 5 (5-15); BUN 19 mg/dL (7-18); Calcium,Total 8.7 mg/dL (8.5-10.1); Chloride 105 mmol/L (98-107); Creatinine, Serum 1.36 mg/dL (0.70-1.30); EST Glomerular Filtration Rate 54 mL/min (>60); Est Glom Filt Rate - Afr Amer 66 mL/min (>60); Estimated Creatinine Clearance 53.73 ml/min; Glucose 195 mg/dL (74-106); Magnesium 1.7 mg/dL (1.6-2.6); Potassium 4.2 mmol/L (3.5-5.1); Sodium Level 136 mmol/L (136-145)
[2021-09-01 19:20] VITALS: PULSE 76; RESP 18; O2SAT 97
[2021-09-01 19:42] VITALS: BP 134/74; PULSE 74
== END 2021-09-01 19:50 | disposition home or self-care (01) ==
PROVIDERS: Emergency Provider Emergency Medicine; PCP Family Medicine; Visit Provider Emergency Medicine
DX: R19.7 Diarrhea, unspecified (principal); E86.0 Dehydration; Z79.82 Long term (current) use of aspirin; Z79.899 Other long term (current) drug therapy
CPT/HCPCS: 80048; 83735; 85027; 96361; 96374; 99283; J7030; A4216; J2405

== ENCOUNTER 2022-03-22 10:15 | Emergency (ER) | payer MEDICARE, OTHER, SELFPAY ==
[2022-03-22 10:16] VITALS: BP 181/83; PULSE 61; RESP 18; TEMP 36.2; O2SAT 98; BMI 27.0
--- NOTE | 2022-03-22 10:25 | EDS_ITS ---
HPI History of Present Illness Chief Complaint: Nosebleed Detail of Chief Complaint: Left-sided nosebleed Informant: patient Narrative Narrative: Patient presents to the emergency department with a left-sided nosebleed that started about 1 hour ago. Patient states the bleeding started spontaneously. Patient states that he bled from the left side of the nose yesterday for about 10 minutes and then stopped. Patient does get frequent nosebleeds. He is not on any blood thinners. He is never had to come to the ER before for nosebleeds. Patient denies any trauma to his nose. Patient has history of hypertension. [facility] Medical History (Updated 03/22/22 @ 10:[address] Joo Sifuentes, DO) Hypertension Home Medications omeprazole 20 mg capsule,delayed release 20 mg PO DAILY reflux 12/19/15 [History Last Taken 02/28/19] diltiazem HCl 120 mg capsule,extended release 24 hr 180 mg PO DAILY heart rate 04/08/16 [History Last Taken 02/28/19] multivitamin (Daily Multiple tablet) 1 ea PO DAILY vitamin 06/16/16 [History Last Taken 02/28/19] aspirin 81 mg tablet,delayed release 81 mg PO DAILY heart health 08/29/16 [History Last Taken 02/28/19] Allergy/AdvReac Type Severity Reaction Status Date / Time No Known Allergies Allergy Verified 03/22/22 10:19 Surgical History (Updated 03/22/22 @ 10:20 by Ena Chavira) H/O left knee surgery History of hip replacement Hx of hernia repair Hx of shoulder surgery Social History Smoking Status: Never smoker ROS ROS ED Review of Systems ROS Unobtainable: other Constitutional Constitutional ED: Reports lethargy; Denies chills, fever(s), sweats or weight loss Eyes Eyes: Denies blurry vision, change in vision or diplopia ENT ENT ED: Reports other Details: Nosebleed ; Denies rhinorrhea or sore throat Cardiovascular Cardiovascular: Denies chest pain, orthopnea or racing heartbeat Respiratory/Chest Respiratory/Chest: Denies cough, dyspnea, dyspnea on exertion, orthopnea or sputum Gastrointestinal Gastrointestinal: Denies abdominal pain, diarrhea, nausea or vomiting Genitourinary Genitourinary ED: Denies dysuria, hematuria or urinary frequency Musculoskeletal Musculoskeletal: Denies arthralgias, back pain, myalgias or neck pain Integumentary Denies abscess, Abrasions or rash Neurologic Neurologic: Denies headache(s) or weakness Psychiatric Psychiatric: Denies anxiety, depression or suicidal thoughts Endocrine Endocrinology: Denies polydipsia, polyphagia or polyuria Hematologic/Lymphatic Hematologic/Lymphatic: Denies easy bleeding, easy bruising or lymphadenopathy Allergic/Immunologic Allergic/Immunologic ED: Denies mouth swelling, tongue swelling or urticaria EXAM Physical Exam Const Vital Signs: 03/22/22 10:16 Temperature 97.2 F L Temperature Source Temporal Pulse Rate 61 Respiratory Rate 18 Blood Pressure 181/83 H Blood Pressure Mean 115 Pulse Ox 98 Oxygen Delivery Method Room Air Positive well nourished and well developed General Appearance ED: well developed and NAD HEENT Reports TM's clear and moist mucous membranes HEENT Narrative: Patient with bleeding from left side of nose with large clot in the nasal vault. Patient does have some blood down to posterior oropharynx. Initially unable to visualize the source of the bleeding. normocephalic and atraumatic; Negative for trauma or tenderness Tympanic Membrane ED: Yes TM's clear Eyes PERRL and EOMs intact bilaterally General Eye ED: Negative for pale conjunctiva or scleral icterus Neck no lymphadenopathy, supple and no JVD General: Negative for tenderness Chest Wall inspection of chest normal and palpation of chest normal Chest: Negative for tenderness Resp normal respiratory effort and clear to auscultation bilaterally Effort and Inspection: Negative for respiratory distress or pain with movement Auscultation: Negative for rhonchi, wheezes or diminished lung sounds Cardio regular rate, regular rhythm, S1 normal heart sound, S2 normal heart sound and no murmurs Peripheral Pulses: pulses 2+ throughout GI normal to inspection, nondistended, normoactive bowel sounds, soft to palpation, non-tender, non-distended and no masses Back/Spine no CVA tenderness and no thoracic nor lumbar tenderness Extremity normal to inspection General Extremety ED: Negative for edema General Extremity: Negative for edema Neuro oriented x3, CN's II-XII intact bilaterally, no sensory deficits noted and gait normal Sensorium / Orientation: awake, alert, oriented to person, oriented to place and oriented to time Motor Exam: strength 5/5 throughout and strength abnormal Psych mental status grossly normal Skin no rashes or lesions noted and no wounds MDM MDM MDM Narrative Medical decision making narrative: Patient had a cotton ball with [place] solution on it placed in the left nasal vault and patient was advised to hold constant pressure as the nose clip would not stay on. Patient was evaluated again at 10:50 AM and cottonball was removed from the left side of the nose. The nasal vault is now clear and I am able to visualize the anterior septum where he has an area of excoriation on the anterior septum that I suspect is the source of the bleeding. There was no further active bleeding. I did use silver nitrate cautery to cauterize the suspected source of the bleeding. Patient will be observed for half an hour and discharged to home if no further bleeding. Patient will be referred to ENT for follow-up within next 3 to 5 days. Patient advised that if the bleeding should start again to hold constant pressure for 20 minutes without letting go. Patient to return to the ER if the bleeding does not stop. Discharge Plan Triage Chief Complaint: Nosebleed ED Provider: Joo Sifuentes Dx/Rx/DC Orders Clinical Impression: Acute anterior epistaxis Instructions: ED Epistaxis (Adult) Prescriptions: No Action omeprazole 20 MG capsule 20 mg PO DAILY Label Comments: REFLUX diltiazem HCl 120 MG capsule 180 mg PO DAILY Label Comments: HEART multivitamin [Daily Multiple] 1 EACH tablet 1 ea PO DAILY Label Comments: SUPPLEMENT aspirin 81 MG tablet,delayed release (DR/EC) 81 mg PO DAILY Primary Care Provider: Evert Hsu Referrals: Mann Lombardi MD [Med Staff - Active Staff] - 3-5 Days Evert Hsu DO [Primary Care Provider] - Disposition Disposition: Home, Self Care
[2022-03-22] MEDS: Mixture 30 ML Bottle 10 ML TOPICAL (10:53)
[2022-03-22] MEDS: Silver Nitrate (BKC) 1 EACH TOPICAL (11:14)
== END 2022-03-22 11:25 | disposition home or self-care (01) ==
PROVIDERS: Emergency Provider Emergency Medicine; PCP Family Medicine; Visit Provider Emergency Medicine
DX: R04.0 Epistaxis (principal); I10 Essential (primary) hypertension
CPT/HCPCS: 30901; 99284

== ENCOUNTER → 2022-09-05 | Outpatient (CLI) | payer MEDICARE, OTHER, SELFPAY ==
[2022-09-05 17:33] LABS: Absolute Lymphocyte Count 1.28 X10^3/uL (0.83-4.51); Absolute Neutrophil Count 4.9 X10^3/uL (2.0-7.7); Basophil# 0.06 X10^3/uL; Basophil% 0.8 % (0-1); Eosinophil# 0.23 X10^3/uL; Eosinophils% 3.2 % (0-5); Hematocrit 43.8 % (40-54); Hemoglobin 14.8 g/dL (13.0-16.5); Lymphocyte # 1.28 X10^3/ul (0.83-4.51); Lymphocyte % 17.9 % (19-41); Mean Corp Hgb Conc 33.8 g/dL (32-36); Mean Corpuscular Hgb 30.6 pg (27.0-32.0); Mean Corpuscular Volume 90.7 fL (80-94); Mean Platelet Vol. 10.2 fl (6.2-12.0); Monocyte# 0.69 X10^3/uL; Monocyte% 9.6 % (0-10); NRBC Flagged by Analyzer 0 % (0-5); Neutrophil # 4.89 X10^3/uL (2.7-7.7); Neutrophil % 68.4 % (47-70); Platelet Count 223 K/mm3 (150-450); RBC Distribution Width CV 13.2 % (11.6-14.6); RBC Distribution Width SD 44.5 fl (35.1-43.9); Red Blood Count 4.83 M/mm3 (4.6-6.2); White Blood Count 7.2 K/mm3 (4.4-11.0)
[2022-09-05 17:46] LABS: AST(SGOT) 23 U/L (15-37); Alanine Aminotransfer ALT/SGPT 35 U/L (16-61); Albumin, Serum 3.7 g/dL (3.2-5.0); Alkaline Phosphatase 95 U/L (45-117); Anion Gap 7 (5-15); BUN 22 mg/dL (7-18); BUN/Creat Ratio 19.1 RATIO (10-20); Calcium,Total 9.1 mg/dL (8.5-10.1); Chloride 109 mmol/L (98-107); Creatinine, Serum 1.15 mg/dL (0.70-1.30); EST Glomerular Filtration Rate 66 mL/min (>60); Est Glom Filt Rate - Afr Amer 79 mL/min (>60); Globulin 3.7 g/dL (2.2-4.2); Glucose 132 mg/dL (74-106); PSA,Total- Diagnostic < 0.01 ng/mL (0.0-4.0); Potassium 4.2 mmol/L (3.5-5.1); Protein, Total 7.4 g/dL (6.4-8.2); Sodium Level 140 mmol/L (136-145)
[2022-09-05 17:52] LABS: Hemoglobin A1c 6.1 % (3.8-5.6)
== END | disposition home or self-care (01) ==
LOC: MTLAB 14:26
PROVIDERS: PCP Family Medicine; Referring Provider Family Medicine; Visit Provider Family Medicine
DX: I10 Essential (primary) hypertension (principal); R79.89 Other specified abnormal findings of blood chemistry; R73.9 Hyperglycemia, unspecified; Z85.46 Personal history of malignant neoplasm of prostate
CPT/HCPCS: 36415; 80053; 83036; 84153; 85025

== ENCOUNTER → 2022-10-27 | Outpatient (CLI) | payer MEDICARE, OTHER, SELFPAY ==
[2022-10-27 10:18] LABS: Mucous, Urine 0 SEEN /hpf (<or=2+)
[2022-10-27 12:58] LABS: Color, Urine Yellow (Yellow); Glucose, Dipstick Normal (Normal); Ketone-Dipstick Negative (Negative); Leukocyte Esterase-Dipstick 500 /ul (Negative); Nitrite-Dipstick Negative (Negative); Occult Blood-Urine 250 /ul (Negative); Protein-Dipstick 30 mg/dl (Negative); Specific Gravity, Urine 1.025 (1.002-1.030); Urine Bilirubin Dipstick Negative (Negative); Urine Clarity Cloudy (Clear); Urine Urobilinogen Normal (Normal)
[2022-10-27 13:25] LABS: White Blood Cells >100 SEEN /hpf (0-5)
[2022-10-27 13:26] LABS: Bacteria RARE /hpf (None Seen); Red Blood Cells-Urine 25-50 SEEN /hpf (0-5); Squamous Epithelial Cells - UA 0-5 SEEN /hpf (0-5)
== END | disposition home or self-care (01) ==
PROVIDERS: PCP Family Medicine; Visit Provider Physician Assistant
DX: R30.0 Dysuria (principal)
CPT/HCPCS: 81001; 87077; 87086; 87088; 87186

== ENCOUNTER → 2022-12-22 | Outpatient (CLI) | payer MEDICARE, OTHER, SELFPAY | END | disposition home or self-care (01) | LOC: LABSPEC 16:34 | PROVIDERS: PCP Family Medicine; Referring Provider Family Medicine; Visit Provider Family Medicine | DX: N39.0 Urinary tract infection, site not specified (principal) | CPT/HCPCS: 87086; 87088; 87186 ==

== ENCOUNTER → 2023-04-27 | Outpatient (CLI) | payer MEDICARE, OTHER, SELFPAY ==
--- OUTSIDE RECORDS SUMMARY | 2023-04-27 12:06 | XMS RPT_ITS | CCD ---
Author Name Unknown Address [address] [place] [address] Organization [facility] Care Team Providers Care Hull Line Crew Member Name Role Phone Anirudh Doran MD Unavailable Shirlene Marin Unavailable Valentina Moralez Unavailable RODOLFO PANIAGUA (PA) Unavailable Unavailable TOPHER SHANNON Unavailable Unavailable RODOLFO PANIAGUA (MAG) Unavailable Unavailable RODOLFO PANIAGUA (MAG) Unavailable Unavailable HEIDI TALAVERA Unavailable UnavailROME Verdin Unavailable Unavailable Anirudh Doran MD Unavailable Shirlene Marin Unavailable Medications Completed/Discontinued Medications Medication Drug Class(es) Dates Sig (Normalized) Sig (Original) aspirin 81 mg delayed release oral tablet (7 sources) Nonsteroidal Anti-inflammatory Drug Start: 12-21-2015 take 1 tablet by mouth once daily ASPIRIN EC 81 MG TBEC One tablet by mouth daily ASPIRIN [id number] Shikha Perez RN atorvastatin 40 mg oral tablet (11 sources) HMG-CoA Reductase Inhibitor Start: 01-27-2016 End: 08-27-2016 take 1 tablet by mouth at bedtime ATORVASTATIN CALCIUM 40 MG TABS One tablet by mouth at bedtime. ATORVASTATIN CALCIUM [id number] Shikha Perez RN DILTIAZEM HCL COATED BEADS (20 sources) Calcium Channel Eben Start: 01-27-2016 take 1 tablet by mouth once daily CARDIZEM CD 180 MG IL19H-GCS One tablet by mouth daily DILTIAZEM HCL COATED BEADS [id number] Dianna Negro RN Problems Active Problems Problem Classification Problem Date Documented Date Episodic/Chronic Cardiac dysrhythmias (14 sources) Sinus tachycardia; Translations: [Premature atrial contraction] Onset: 12-21-2015 12-21-2015 Chronic Disorders of lipid metabolism (7 sources) Hyperlipidemia; Translations: [Hyperlipidemia, unspecified] Onset: 03-04-2016 03-04-2016 Chronic Essential hypertension (7 sources) Hypertensive disorder; Translations: [Essential (primary) hypertension] Onset: 02-27-2016 02-27-2016 Chronic Joint disorders and dislocations; trauma-related (7 sources) Derangement of meniscus; Translations: [Other meniscus derangements, unspecified meniscus, unspecified knee] Onset: 01-08-2016 01-08-2016 Chronic Osteoarthritis (14 sources) Osteoarthritis of hip; Translations: [Osteoarthritis of knee] Onset: 01-08-2016 02-28-2016 Chronic Spondylosis; intervertebral disc disorders; other back problems (7 sources) Degeneration of lumbar intervertebral disc; Translations: [Other intervertebral disc degeneration, lumbar region] Onset: 01-08-2016 01-08-2016 Chronic Transient cerebral ischemia (7 sources) Transient cerebral ischemic attack, unspecified; Translations: [Transient cerebral ischemic attack, unspecified] Onset: 01-27-2016 01-27-2016 Chronic Unclassified (2 sources) Long-term drug therapy; Translations: [Other senior care (current) drug therapy] Onset: 03-04-2016 03-04-2016 Unclassified (2 sources) Postoperative physical examination; Translations: [Encounter for other specified surgical aftercare] Onset: 04-24-2016 04-24-2016 Past or Other Problems Problem Classification Problem Date Documented Da te Episodic/Chronic Abdominal hernia (4 sources) Right inguinal hernia ; Translations: [Unilateral inguinal hernia, without obstruction or gangrene, not specified as recurrent] Onset: 08-27-2016 09-01-2016 Episodic Other aftercare (10 sources) Encounter for other specified surgical aftercare; Translations: [Other bed bug exterminator (current) drug therapy] Onset: 03-04-2016 04-24-2016 Episodic Other non-traumatic joint disorders (12 sources) Hip pain; Translations: [Knee pain] Onset: 01-08-2016 01-08-2016 Episodic Other non-traumatic joint disorders (2 sources) Knee pain; Translations: [Pain in left knee] Onset: 01-08-2016 01-08-2016 Episodic Spondylosis; intervertebral disc disorders; other back problems (14 sources) Lumbar radiculopathy; Translations: [Low back pain] Onset: 01-08-2016 01-08-2016 Episodic Results Test Name Value Interpretation Reference Range Facil ity Vital Signs Date Time Vital Sign Value Performing Clinician Facility 09-15-2016 13:58-0400 BMI (Body Mass Index) 25.93 kg/m2 Anirudh Doran MD [facility] [employer] Work Phone: 09-15-2016 13:58-0400 Body Temperature 98.6 [degF] Anirudh Doran MD [facility] [employer] Work Phone: 09-15-2016 13:58-0400 BP Diastolic 76 mm[Hg] Anirudh Doran MD [facility] [employer] Work Phone: 09-15-2016 13:58-0400 BP Systolic 134 mm[Hg] Anirudh Doran MD [facility] [employer] Work Phone: 09-15-2016 13:58-0400 BSA (Body Surface Area) 2.18 m2 Anirudh Doran MD [facility] [employer] Work Phone: 09-15-2016 13:58-0400 Height 187.96 cm Anirudh Doran MD [facility] [employer] Work Phone: 09-15-2016 13:58-0400 Pulse (Heart Rate) 74 /min Anirudh Doran MD [facility] [employer] Work Phone: 09-15-2016 13:58-0400 Respiratory Rate 16 /min Anirudh Doran MD [facility] [employer] Work Phone: 09-15-2016 13:58-0400 Weight 91.63 kg Anirudh Doran MD [facility] [employer] Work Phone: 08-27-2016 13:20-0400 BMI (Body Mass Index) 24.91 kg/m2 Anirudh Doran MD [facility] [employer] Work Phone: 08-27-2016 13:20-0400 Body Temperature 96.4 [degF] Anirudh Doran MD [facility] Work Phone: 08-27-2016 13:20-0400 BP Diastolic 79 mm[Hg] Anirudh Doran MD [facility] Work Phone: 08-27-2016 13:20-0400 BP Systolic 139 mm[Hg] Anirudh Doran MD [facility] [employer] Work Phone: 08-27-2016 13:20-0400 Height 187.96 cm Anirudh Doran MD [facility] Work Phone: 08-27-2016 13:20-0400 Pulse (Heart Rate) 67 /min Anirudh Doran MD [facility] Work Phone: 08-27-2016 13:20-0400 Pulse Oximetry 96 % Anirudh Doran MD [facility] Work Phone: 08-27-2016 13:20-0400 Respiratory Rate 18 /min Anirudh Doran MD [facility] Work Phone: 08-27-2016 13:20-0400 Weight 88 kg Anirudh Doran MD [facility] [employer] Work Phone: 02-12-2016 09:11-0500 BP Diastolic 90 mm[Hg] Valentina Fry [facility] Work Phone: 02-12-2016 09:11-0500 BP Systolic 156 mm[Hg] [facility] Work Phone: 02-12-2016 09:11-0500 Pulse (Heart Rate) 64 /min [facility] Work Phone: 02-12-2016 09:11-0500 Respiratory Rate 20 /min [facility] Work Phone: 01-28-2016 09:20-0500 BMI (Body Mass Index) 28.11 kg/m2 [facility] Work Phone: 01-28-2016 09:20-0500 Body weight 99.34 kg Shirlene Marin [facility] Work Phone: 01-28-2016 09:20-0500 BSA (Body Surface Area) 2.26 m2 [facility] Work Phone: 01-28-2016 09:20-0500 Height 187.96 cm [facility] Work Phone: 01-28-2016 09:20-0500 Weight 99.34 kg [facility] Work Phone: Encounters Encounter Date Encounter Type Care Provider Facility Start: 04-07-2017 End: 05-04-2017 Ambulatory HEIDI TALAVERA [facility] lindsey Start: 03-30-2017 End: 04-01-2017 Ambulatory RODOLFO PANIAGUA (PA) [facility] Piotr velagusto Start: 03-26-2017 End: 04-23-2017 Ambulatory RODOLFO PANIAGUA (PA) [facility] Procedures Date Procedure Procedure Detail Performing Clinician Start: 08-27-2016 End: 08-27-2016 Dietary management education, guidance, and counseling Anirudh Doran MD Start: 07-17-2016 End: 07-17-2016 Dietary management education, guidance, and counseling Shirlene Marin Start: 07-17-2016 End: 07-17-2016 Documentation of current medications Shirlene Marin Start: 02-28-2016 End: 02-28-2016 *BMP Mayte Arce PA-C Work Phone: Start: 02-28-2016 End: 02-28-2016 *Hepatic Function Panel Cale Palacios MD Work Phone: Start: 02-28-2016 End: 02-28-2016 Lipid panel [AGGREGATE] Cale Palacios MD Work Phone: Start: 02-12-2016 End: 02-12-2016 Follow Up BP Check Cale Palacios MD Work Phone: Start: 01-28-2016 End: 01-28-2016 DJN Cale Palacios MD Work Phone: Start: 01-28-2016 End: 01-28-2016 Follow Up Appt 6 months Cale Palacios MD Work Phone: Start: 01-28-2016 End: 01-28-2016 Follow Up BP Check Cale Palacios MD Work Phone: Plan of Treatment Date Care Activity Detail Author Start: 09-15-2016 End: 09-15-[address] [facility] Work Phone: Start: 09-01-2016 End: 09-01-[address] [facility] Work Phone: Start: 08-28-2016 End: 03-04-2016 *Hepatic Function Panel *Hepatic Function Panel [facility] Work Phone: Start: 08-28-2016 End: 03-04-2016 Lipid panel [AGGREGATE] *Lipid Profile CC PCP [facility] Work Phone: Start: 07-17-2016 End: 07-17-2016 Appointment Appointment [facility] Work Phone: Start: 05-29-2016 End: 02-28-2016 *BMP *BMP [facility] Work Phone: Start: 03-27-2016 End: 03-27-2016 Mri jnt of lwr extre w/o dye MRI Joint Lower Extremity [facility] Work Phone: Start: 02-28-2016 End: 02-27-2016 *BMP *BMP [facility] Work Phone: Start: 02-28-2016 End: 02-27-2016 *Hepatic Function Panel *Hepatic Function Panel [facility] Work Phone: Start: 02-28-2016 End: 02-27-2016 Lipid panel [AGGREGATE] *Lipid Profile CC PCP [facility] Work Phone: Start: 02-12-2016 End: 02-12-2016 Follow Up BP Check Follow Up BP Check [facility] Work Phone: Start: 01-28-2016 End: 01-28-2016 DJN DJN [facility] Work Phone: Start: 01-28-2016 End: 01-28-2016 Follow Up Appt 6 months Follow Up Appt 6 months [facility] Work Phone: Start: 01-28-2016 End: 01-28-2016 Follow Up BP Check Follow Up BP Check [facility] Work Phone: Start: 01-09-2016 End: 01-09-2016 Physical Therapy General Physical Therapy [facility], [address] [place] [address], [id number] [facility] Work Phone: Start: 01-08-2016 End: 01-08-2016 X-ray exam l-s spine bending X-Ray, Spine, Lumbar, complete with bending views [facility] Work Phone: Start: 01-08-2016 End: 01-08-2016 X-ray exam, knee, 4 or more X-Ray, Knee [facility] Work Phone: Start: 01-08-2016 End: 01-08-2016 X-Ray, Hip, unilateral, with pelvis; 2-3 views X-Ray, Hip, unilateral, with pelvis; 2-3 views [facility] Work Phone: Patient Education CHOLESTEROL%20 AND%20YOU R%20HEALTH [facility] Work Phone: Summary Purpose Family History No Family History Records Found Advance Directives No Advanced Directives Records Found Additional Source Comments (unrecognized sect ion and content) No Status Records Found INFORMATION SOURCE (unrecogn ized section and content) FOR RECORDS PERTAINING TO PATIENTS WHO ARE OR HAVE BEEN ENROLLED IN A CHEMICAL DEPENDENCY/SUBSTANCEABUSE PROGRAM, SOME INFORMATION MAY BE OMITTED. This clinical summary was aggregated from multiple sources. Caution should be exercised in using it in the provision of clinical care. This summary normalizes information from multiple sources, and as a consequence, information in this document may materially change the coding, format and clinical context of patient data. In addition, data may be omitted in some cases. CLINICAL DECISIONS SHOULD BE BASED ON THE PRIMARY CLINICAL RECORDS. [facility]. provides no warranty or guarantee of the accuracy or completeness of information in this document.
== END | disposition home or self-care (01) ==
LOC: MTLAB 11:43
PROVIDERS: PCP Family Medicine; Referring Provider Orthopaedic Surgery; Visit Provider Orthopaedic Surgery
DX: M25.562 Pain in left knee (principal)
CPT/HCPCS: 36415; 84550

== ENCOUNTER → 2023-07-16 | Outpatient (CLI) | payer MEDICARE, OTHER, SELFPAY ==
--- NOTE | 2023-07-16 13:33 | MRI_ITS ---
STUDY: MRI LEFT KNEE REASON FOR EXAM: Male, 77 years old. Pain. Knee pain without injury. Previous arthroscopic surgery. TECHNIQUE: Standardized fat and water weighted pulse sequences were obtained in all 3 orthogonal planes. COMPARISON: None. FINDINGS: Normal medial meniscus. Normal hyaline cartilage of the medial femorotibial compartment. Normal medial femoral condyle and tibial plateau. Normal medial collateral ligamentous complex (MCL). Normal distal semimembranosus, gracilis and semitendinosus tendons. There is degenerative free edge tearing of the lateral meniscus. There is peripheral extrusion of the body of the lateral meniscus. There is moderate to severe degenerative arthrosis of the lateral femorotibial compartment with joint space narrowing, marginal osteophyte formation, moderate to high-grade chondromalacia, and subchondral marrow edema on both sides of the joint. Normal proximal tibiofibular articulation. Normal lateral collateral (fibular) ligament. Normal popliteus tendon. Normal biceps femoris tendon. Normal anterior cruciate ligament (ACL). Normal posterior cruciate ligament (PCL). There is low-grade chondromalacia along the lateral patellar facet. Congruent patellofemoral articulation. Normal medial and lateral patellar retinaculum. Normal quadriceps tendon. Normal patellar tendon. Normal Hoffa''s fat pad. There is a moderate to large joint effusion. There is no popliteal cyst. There is no acute fracture. MRI/Lower Ext Joint Only (Routine) IMPRESSION: Degenerative free edge tearing of the lateral meniscus with peripheral extrusion of the body of the lateral meniscus. 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 Moderate to large joint effusion. Electronically Signed: Gabriel Pereira MD at 15:03 EDT ,
== END | disposition home or self-care (01) ==
LOC: MRI 13:22
PROVIDERS: PCP Family Medicine; Referring Provider Orthopaedic Surgery; Visit Provider Orthopaedic Surgery
DX: M17.12 Unilateral primary osteoarthritis, left knee (principal)
CPT/HCPCS: 73721

== ENCOUNTER → 2023-07-20 | Outpatient (CLI) | payer MEDICARE, OTHER, SELFPAY ==
[2023-07-20 18:27] LABS: EST Glomerular Filtration Rate 77 mL/min (>60); Est Glom Filt Rate - Afr Amer 94 mL/min (>60)
[2023-07-20 20:15] LABS: Body Fluid QC Type(s) BF2Q; CRYSTALS, BODY FLUID See PATH REV; Source- Body Fluid SYNOVIAL
[2023-07-21 13:20] LABS: Pathologist Review Reviewed
== END | disposition home or self-care (01) ==
LOC: MTLAB 15:15
PROVIDERS: PCP Family Medicine; Referring Provider Orthopaedic Surgery; Visit Provider Orthopaedic Surgery
DX: M17.12 Unilateral primary osteoarthritis, left knee (principal); Z79.1 Long term (current) use of non-steroidal anti-inflammatories (NSAID)
CPT/HCPCS: 36415; 82565; 89060

== ENCOUNTER → 2024-04-26 | Outpatient (CLI) | payer MEDICARE, OTHER, SELFPAY ==
[2024-04-26 18:17] LABS: Absolute Lymphocyte Count 1.34 X10^3/uL (0.83-4.51); Absolute Neutrophil Count 4.7 X10^3/uL (2.0-7.7); Basophil# 0.04 X10^3/uL; Basophil% 0.6 % (0-1); Eosinophil# 0.08 X10^3/uL; Eosinophils% 1.2 % (0-5); Hematocrit 45.1 % (40-54); Hemoglobin 15.2 g/dL (13.0-16.5); Lymphocyte # 1.34 X10^3/ul (0.83-4.51); Lymphocyte % 20.2 % (19-41); Mean Corp Hgb Conc 33.7 g/dL (32-36); Mean Corpuscular Hgb 31.2 pg (27.0-32.0); Mean Corpuscular Volume 92.6 fL (80-94); Mean Platelet Vol. 9.4 fl (6.2-12.0); Monocyte# 0.48 X10^3/uL; Monocyte% 7.2 % (0-10); NRBC Flagged by Analyzer 0 % (0-5); Neutrophil # 4.69 X10^3/uL (2.7-7.7); Neutrophil % 70.5 % (47-70); Platelet Count 252 K/mm3 (150-450); RBC Distribution Width CV 13.1 % (11.6-14.6); Red Blood Count 4.87 M/mm3 (4.6-6.2); White Blood Count 6.7 K/mm3 (4.4-11.0)
[2024-04-26 18:43] LABS: Hemoglobin A1c 6.1 % (3.8-5.6)
[2024-04-26 18:56] LABS: Anion Gap 8 (5-15); BUN 20 mg/dL (7-18); BUN/Creat Ratio 19.4 RATIO (10-20); Calcium,Total 9.1 mg/dL (8.5-10.1); Chloride 109 mmol/L (98-107); Creatinine, Serum 1.03 mg/dL (0.70-1.30); EST Glomerular Filtration Rate 74 mL/min (>60); Est Glom Filt Rate - Afr Amer 90 mL/min (>60); Glucose 180 mg/dL (74-106); PSA,Total - Annual Screen < 0.01 ng/mL (0.00-4.00); Potassium 4.4 mmol/L (3.5-5.1); Sodium Level 141 mmol/L (136-145); Uric Acid 4.5 mg/dL (3.5-7.2)
== END | disposition home or self-care (01) ==
LOC: BFHLAB 14:30
PROVIDERS: PCP Family Medicine; Visit Provider Family Medicine
DX: Z12.5 Encounter for screening for malignant neoplasm of prostate (principal); I10 Essential (primary) hypertension; R73.01 Impaired fasting glucose; M25.572 Pain in left ankle and joints of left foot
CPT/HCPCS: 36415; 80048; 83036; 84153; 84550; 85025; G0103

== ENCOUNTER → 2024-05-31 | Outpatient (CLI) | payer MEDICARE, OTHER, SELFPAY | END | disposition home or self-care (01) | LOC: LABSPEC 15:08 | PROVIDERS: PCP Family Medicine; Visit Provider Family Medicine | DX: R30.0 Dysuria (principal) | CPT/HCPCS: 87086; 87088; 87186 ==